=== PATIENT | male | born 1970 | race Caucasian/White ===

== ENCOUNTER 2022-02-03 12:59 | Observation (INO) | payer OTHER ==
[2022-02-03 13:22] LABS: #Eosinphils 0.1 thou/uL (0.0-0.7); #Lymphocytes 1.8 thou/uL (1.20-3.40); #Monocytes 0.6 thou/uL (0.11-0.59); #Neutrophils 5.9 thou/uL (1.40-6.50); %Basophils 0.3 % (0.0-1.0); %Eosinophils 1.2 % (0.0-10.0); %Lymphocytes 21.5 % (21.0-51.0); %Monocytes 7.4 % (0.0-10.0); %Neutrophils 69.6 % (42.0-75.0); Hemoglobin 17.4 g/dL (14.0-18.0); Mean Corpuscular HGB CONC 33.5 g/dL (32.0-36.0); Mean Corpuscular Hemoglobin 30.5 pg (27.0-31.0); Mean Platelet Volume 6.6 fL (7.4-10.4); Platelet Count 250 thou/uL (130-400); RBC Distribution Width 12.4 % (11.5-14.5); White Blood Cell (WBC) Count 8.4 thou/uL (4.8-10.8)
[2022-02-03 13:42] LABS: ALT (SGPT) 42 U/L (8-55); AST (SGOT) 28 U/L (5-34); Albumin 4.3 g/dL (3.5-5.0); Alkaline Phosphatase 94 U/L (40-110); Anion Gap 12 mmol/L (10-20); BUN (Urea Nitrogen) 15 mg/dL (8.4-25.7); Bilirubin, Total 0.6 mg/dL (0.2-1.2); Calc. Creatinine Clearance 0 mL/min (70-130); Calcium 9.3 mg/dL (7.8-10.44); Carbon Dioxide 25 mmol/L (22-29); Chloride 107 mmol/L (98-107); Estimated GFR 106; Globulin 3.4 g/dL (2.4-3.5); Glucose 109 mg/dL (70-105); Potassium 4.5 mmol/L (3.5-5.1); Protein, Total 7.7 g/dL (6.0-8.3); Sodium 139 mmol/L (136-145)
[2022-02-03 14:12] LABS: CK (CPK) 50 U/L (30-200); Magnesium 2.2 mg/dL (1.6-2.6)
[2022-02-03 16:44] LABS: Troponin I 0.012 ng/mL (< 0.028)
[2022-02-03] MEDS ORDERED: Acetaminophen 325 MG TAB PO PRN (16:53)
[2022-02-03 17:52] LABS: Hemoglobin A1c 5.6 % (4.0-6.0)
[2022-02-03 18:14] VITALS: BMI 30.1
[2022-02-03 18:24] LABS: Free T4 (Free Thyroxine) 0.91 ng/dL (0.70-1.48); Thyroid Stimulating Hormone 0.9655 uIU/mL (0.35-4.94)
[2022-02-03 18:34] LABS: Troponin I 0.056 ng/mL (< 0.028)
[2022-02-03 19:32] LABS: Bacteria/HPF None Seen HPF (None Seen); Bilirubin Negative (Negative); Blood, Urine Negative (Negative); Clarity Clear (Clear); Glucose, Urine (Dipstick) 50 mg/dL (Negative); Ketone, Urine Negative (Negative); Leukocyte Negative Leu/uL (Negative); Nitrite Negative (Negative); Protein, Urine (Dipstick) 30 mg/dL (Neg-Trace); RBC/HPF 0-3 HPF (0-3); Specific Gravity, Urine 1.029 (1.002-1.036); Squamous Epithelial None Seen HPF (0-3); Urobilinogen Normal mg/dL (Less than 2); WBC/HPF 0-3 HPF (0-3)
[2022-02-04 05:19] LABS: Troponin I Less than 0.010 ng/mL (< 0.028)
[2022-02-04] MEDS ORDERED: Enoxaparin Sodium 40 MG/0.4 ML SYRINGE SC SCH (09:00)
[2022-02-04 16:38] VITALS: BP 127/77; TEMP 97.7
== END 2022-02-04 16:20 | disposition home or self-care (01) ==
LOC: ERS 12:59 → 2SW 15:26
PROVIDERS: ADMIT Hospitalist; ATTEND Hospitalist
DX: R55 Syncope and collapse (principal); R20.2 Paresthesia of skin; M54.2 Cervicalgia; U07.1 COVID-19; M54.89 Other dorsalgia; F17.220 Nicotine dependence, chewing tobacco, uncomplicated; I08.1 Rheumatic disorders of both mitral and tricuspid valves; Z79.82 Long term (current) use of aspirin
CPT/HCPCS: 36415; 70551; 71045; 72125; 80053; 81001; 82550; 83036; 83735; 84439; 84443; 84484; 85025; 85652; 86140; 93005; 93306; 93880; 96372; G0378; J1650; U0003; U0005